=== PATIENT | female | born 1980 | race Caucasian/White ===

== ENCOUNTER 2023-12-03 20:12 | Outpatient (REF) | payer OTHER, SELFPAY ==
[2023-12-08 18:09] LABS: Age Gdln ACOG Testing Note (.); HPV Aptima Negative (Negative); IGP, Aptima HPV, rfx 16/18,45 Note (.)
== END 2023-12-03 20:13 | disposition home or self-care (01) ==
LOC: LAB 20:12
PROVIDERS: Visit Provider Physician Assistant
DX: Z01.419 Encounter for gynecological examination (general) (routine) without abnormal findings (principal)
CPT/HCPCS: 87624; G0145

== ENCOUNTER 2024-12-08 19:36 | Outpatient (REF) | payer OTHER, SELFPAY ==
[2024-12-13 11:08] LABS: Age Gdln ACOG Testing Note (.); HPV Aptima Negative (Negative); IGP, Aptima HPV, rfx 16/18,45 Note (.)
== END 2024-12-08 19:37 | disposition home or self-care (01) ==
LOC: LAB 19:36
PROVIDERS: Visit Provider Physician Assistant
DX: Z01.419 Encounter for gynecological examination (general) (routine) without abnormal findings (principal)
CPT/HCPCS: 87624; 88175

== ENCOUNTER 2024-12-16 13:46 | Outpatient (OUT) | payer OTHER, SELFPAY ==
--- NOTE | 2024-12-16 14:19 | MM_ITS ---
Patient Name: SHAWN OLIVO MR#: [id number] : 1980 Exam Date: 12/16/2024 Ordering Doctor: SHARMAINE VASQUEZ . RADIOLOGY REPORT PROCEDURE: MM TOMOSYNTHESIS SCREENING BI COMPARISON: MG MAMM SCREEN 3D MAYURI CAD, 10/24/2022. INDICATIONS: Screening mammogram Calculator Name NCI Breast Cancer Risk Assessment Tool 5 Year Breast Cancer Risk 0.80% Lifetime Breast Cancer Risk 10.80% Personal Breast Cancer No Personal Ovarian Cancer No Treatments None Family Cancers None LOCATION: [facility] BREAST COMPOSITION: The breasts are heterogeneously dense,which may obscure small masses. FINDINGS: DIAGNOSTIC CATEGORY 1--NEGATIVE. RIGHT BREAST: No significant suspicious finding. LEFT BREAST: No significant suspicious finding. RECOMMENDATIONS: ROUTINE MAMMOGRAM AND CLINICAL EVALUATION IN 12 MONTHS. PLEASE NOTE: A NORMAL MAMMOGRAM DOES NOT EXCLUDE THE POSSIBILITY OF BREAST CANCER. A CLINICALLY SUSPICIOUS PALPABLE LUMP SHOULD BE BIOPSIED. Dictated by: Sandoval Curtis DO on 12/16/2024 at 15:18 Approved by: Sandoval Curtis DO on 12/16/2024 at 15:20
== END 2024-12-16 13:47 | disposition home or self-care (01) ==
LOC: MAMMO 13:48
PROVIDERS: PCP Family Medicine; Visit Provider Physician Assistant
DX: Z12.31 Encounter for screening mammogram for malignant neoplasm of breast (principal)
CPT/HCPCS: 77063; 77067

== ENCOUNTER 2025-03-02 05:38 | Emergency (ER) | payer OTHER, SELFPAY ==
--- OUTSIDE RECORDS SUMMARY | 2024-10-07 10:45 | XMS_ITS ---
Author Organization [facility] in [place] Address [address] [place] [address] Care Team Providers Care Paper Feeder Name Role Phone Tristian Rothman Primary Care Provider Allergies No Known Allergies REASON FOR VISIT right ear feels plugged Medications Medication SIG (Take, Route, Frequency, Duration) Notes Start Date End Date Status Topiramate 100 MG 2.5 tabs Orally Once a day for 90 days 12/24/2022 Active tiZANidine HCl 4 MG 1 tablet as needed O rally Three times a day for 30 days PRN Active Rizatriptan Benzoate 10 MG 1 tablet Oral ly Once a day for 30 days PRN Active Social History Tobacco Use: Social History Observation Description Date Details (start date - stop date) Never Smoker NA - NA Tobacco Use/Smoking Question Answer Notes Patient is a nonsmoker AUDIT-C (Standard) Question Answer Notes Did you have a drink containing alcohol in the p ast year? No Points 0 Interpretation Negative Vital Signs Blood pressure systolic 122 mm Hg 10/07/19 25 Blood pressure diastolic 80 mm Hg 025 Height 66 in 10/07/2024 Weight 159 lbs 10/07/2024 BMI 25.66 kg/m2 10/07/2024 Procedures Procedure Date Ordered Date Performed Result Body Sit e EAR IRRIGATION - performed 10/07/2024 10/07/2024 N/A Encounters Encounter Location Date Provider Diagnosis [facility] [address] [place] [address] 10/07/2024 Tristian Rothman Cerumen impaction H61.20 and Bilateral impacted cerumen H61.23 Assessments Encounter Date Diagnosis (ICD Code) Assessment Notes Treatment Notes Treatment Clinical Notes Section Notes 10/07/2024 Cerumen impaction (ICD-10 - H61.20) ear war R 10/07/2024 Bilateral impacted cerumen (ICD-10 - H61.23) Plan Of Treatment Medication Medication Name Sig Start Date Stop Date Notes Topiramate 100 MG 2.5 tabs Orally Once a day for 90 days 0 12/24/2022 Treatment Notes Assessment Notes Cerumen impaction ear war R Pending Test Test Name Order Date EAR IRRIGATION - performed 10/07/2024 Progress Notes * Esme SAUCEDO SDOB:1980 ( 44 yo F)Acc No.[id number]:10/07/2024 Progress Note Patient: Esme RACHEL Provider: Alma Delia Rothman ([facility]), :1980 A ge:44 Y S ex:Female Date:10/07/2024 Address:[place] [address], [facility], [id number] Check In:02:36 PM ESTCheck O ut:03:27 PM EST Subjective: * Chief Complaints: * R ight ear feels plugged * HPI: G eneral: R ear plugged - dailed hearing test. D epression Screening: PHQ-2 (2015 Edition) L ittle interest or pleasure in doing things??Not at all F eeling down, depressed, or hopeless? N ot at all T otal Score 0 * Active Problem List J01.11 Acute recurrent fron narendra sinusitis Modified On:12/30/2022/U Status:confirmed G43.909 Migraine headache Modified On:01/01/2023U Status:confirmed M54.2 Neck pain Modified On:01/02/2023U Status:confirmed F32.9 Depression Modified On:12/30/2022U Status:confirmed G47.00 Insomnia Modified On:12/30/2022U Status:confirmed L30.9 Eczema Modified On:08/20/2023U Status:confirmed M25.569 Knee pain Modified On:08/20/2023/U Status:confirmed M25.50 Arthralgia Modified On:08/20/2023 Status:confirmed H61.20 Cerumen impaction Modified On:12/30/2022 Status:confirmed B00.1 Cold sore Modified On:12/30/2022 Status:confirmed K80.20 Cholelithiasis Modified On:12/30/2022U Status:confirmed Z00.00 Well adult Modified On:12/30/2022U Status:confirmed K58.9 Irritable bowel synd carmella Modified On:12/30/2022U Status:confirmed E66.3 Over weight Modified On:12/30/2022 Status:confirmed J30.2 Allergic rhinitis, s easonal Modified On:12/30/2022 Status:confirmed M25.529 Elbow pain Modified On:12/30/2022 Status:confirmed M54.50 Chronic midline low back pain without sciatica Modified On:01/01/2023U Status:confirmed M77.10 Lateral epicondyliti s of elbow Modified On:03/27/2023U Status:confirmed J31.0 Chronic rhinitis Modified On:02/12/2024U Status:confirmed * Medical History: * Surgical History: C holecystectomy 2011Tonsillectomy 1987 * Hospitalization/Major Diagno stic Procedure: N o Hospitalization History. * Family History: F ather: alive 70 yrs. M other: alive 69 yrs, diagnosed with Unspecified essential hypertension. S ister(s): alive. 1 sister(s) - healthy. . * Social History: T obacco Use: T obacco Use/Smoking P atient is a n onsmoker D rug/Alcohol: A NEEL-C (Standard) D id you have a drink containing alcohol in the past year? N o P oints 0 I nterpretation N egative * Medications: T akingRizatriptan Benzoate 10 MG Tablet 1 tablet Orally Once a day , Notes to Pharmacist: PRNtiZANidine HCl 4 MG Tablet 1 tablet as needed Orally Three times a day , Notes to Pharmacist: PRNTopiramate 100 MG Tablet 2.5 tabs Orally Once a day Medication List reviewed and reconciled with the patientTaking Faditriptan Benzoate 10 MG Tablet 1 tablet Orally Once a day , Notes to Pharmacist: PRNTaking tiZANidine HCl 4 MG Tablet 1 tablet as needed Orally Three times a day , Notes to Pharmacist: PRNTaking Topiramate 100 MG Tablet 2.5 tabs Orally Once a day Medication List reviewed and reconciled with the patient * Allergies: N .K.D.A.no[Allergies Verified] Objective: * Vitals: W t:159lbs, Ht: 66 in, BP:122/80mm Hg, BMI:25.66Index, Ht-cm: 167.64 cm, Wt-k.12 kg. * Examination: A bdomen Exam:: R cerumen impaction. Assessment: * Assessment: 1. C erumen impaction - H61.20 (Primary) 2 . B ilateral impacted cerumen - H61.23 Plan: * Treatment: Notes: ear war R?? * Procedure Codes: 6 9209 REMOVE IMPACTED CERUMEN, Modifiers: 50 * Preventive Medicine: Screenings/Counseling: B WI ACTION PLAN Below Normal BMI Follow-up D ietary management education, guidance, and counseling * * Sign off status: Completed Visit Status: C HK (Check Out) true * Provider: Alma Delia Rothman ([facility])MD Date: 0 10/07/2024 Generated for Lorenai ng/Fareubeng/eTransmitting on: 0 03/02/2025 05:46 AM EDT History and Physical Notes * HPI (History of Present Illness) Category Sub-Category Detail Notes Category Not es General R ear plugged - dailed hearing test Depression Screening PHQ-2 (2015 Edition) Little interest or pleasure in doing things?: Not at all Feeling down, depressed, or hopeless?: N ot at all Total Score: 0 Examination Category Sub-Category Detail Notes Category Not es Abdomen Exam: R cerumen impa ction
--- OUTSIDE RECORDS SUMMARY | 2024-10-11 04:06 | XMS_ITS ---
Author Organization The [facility] in [place] Address [address] [place] [address] Care Team Providers Care Nut Sorter Name Role Phone Tristian Rothman Primary Care Provider Medications Medication SIG (Take, Route, Fr equency, Duration) Notes Start Date End Date Status Topiramate 100 MG 2.5 tabs Orally Once a day for 90 days 12/24/2022 Active Encounters Encounter Location Date Provider Diagnosis [facility] [address] [place] [address] 10/11/2024 Tristian Rothman Cerumen impaction H61.20 Assessments Encounter Date Diagnosis (ICD Code) Assessment Notes Treatment Notes Treatment Clinical Notes Section Notes 10/11/2024 Cerumen impaction (ICD-10 - H61.20) Plan Of Treatment Medication Medication Name Sig Start Date Stop Date Notes Topiramate 100 MG 2.5 tabs Orally Once a day for 90 days 0 12/24/2022 Progress Notes * Esme OLIVO SDOB:1980 ( 44 yo F)Acc No.[id number]:10/11/2024 Patient: Esme RACHEL :1980 A ge:44 Y S ex:Female Address: [address], [place], [address] * Refills Refill Topiramate Tablet, 100 MG, Orally, 225 Tablet, 2.5 tabs, Once a day, 90 days, Refills=3 * true * Date: Generated for Austin silva/Maegan/Maryjoitting on: 0 03/02/2025 05:47 AM EDT
--- OUTSIDE RECORDS SUMMARY | 2024-12-18 11:50 | XMS_ITS ---
Author Organization [facility] in [place] Address [address] [place] [address] Care Team Providers Care Sales Management Trainee Name Role Phone Tristian Rothman Primary Care Provider [phone] REASON FOR VISIT Mammogram Results- Encounters Encounter Location Date Provider Diagnosis [facility] [address] [place] [address] 12/18/2024 Tristian Rothman Plan Of Treatment No Information Progress Notes * GEOVANI Esme SDOB:1980 ( 44 yo F)Acc No.[id number]:12/18/2024 Patient: Esme RACHEL :1980 A ge:44 Y S ex:Female Address:[address], [address] * true * Date: Generated for Lorenai ricardo/Maegan/eTransmitting on: 0 03/02/2025 05:46 AM EDT
[2025-03-02 05:43] VITALS: BP 130/101; PULSE 99; TEMP 36.6; O2SAT 100; BMI 24.5
--- OUTSIDE RECORDS SUMMARY | 2025-03-02 05:46 | XMS_ITS | CCD ---
Author Organization [facility] Care Team Providers Care Picking Belt Operator Name Role Phone Patti Thomas Unavailable Amie Morse Unavailable NAVYA Shelton, DR JOE Primary Care Unavailable PEDRO ., MARIJA Attending Unavailable PEDRO ., MARIJA Consulting Unavailable PEDRO .MARIJA Admitting Unavailable NAVYA ., DR JOE Attending Unavailable NAVYA ., DR JOE Consulting Unavailable NAVYA ., DR JOE Primary Care Unavailable NAVYA ., DR JOE Admitting Unavailable PORT EWEN, DR BILL Grover Consulting Unavailable NAVYA ., DR JOE Attending Unavailable HOY ., DR JOE Consulting Unavailable NAVYA ., DR JOE Primary Care Unavailable NAVYA ., DR JOE Admitting Unavailable Heath Rothman MD Primary Care Provider [phone] MARIJA VASQUEZ Attending Unavailable Allergies Allergy Classification Reported Allergen(s) Allergy Type Date of Onset Reaction(s) Facility (2 sources) Sulfamethoxazole / Trimethoprim Drug Allergy [facility] Surveypal Other Medications Current Medications Medication Drug Class(es) Dates Sig (Normalized) Sig (Original) doxycycline monohydrate 100 mg oral capsule (2 sources) Tetracycline- class Drug Start: 1 take 1 capsule by mouth every twelve hours Doxycycline Monohydrate 100 MG 1 capsule Orally every 12 hrs for 7 days Jul, Active FLUoxetine (2 sources) Serotonin Reuptake Inhibitor FLUoxetine HCl Activ e 1 ml medroxyPROGESTERone acetate 150 mg/ml injection (20 sources) Progestin Start: 5 End: 6 medroxyPROGESTERone (Depo-Provera) 150 MG/ML suspension prefilled syringe injection syringe Indications: Encounter for management and injection of depo-Provera Inject 1 mL (150 mg) into the shoulder, thigh, or buttocks every 3 (three) months 1 mL 3 12/08/2024 12/08/2025 Active Start: 09-18-2023 medroxyPROGEST ERone (Depo-Provera) injection 150 mg methylPREDNISolone 4 mg oral tablet (2 sources) Corticosteroid Start: 08-04-2021 methylPREDNISolone 4 MG as directed Orally Once a day for 6 days Jul, Active rizatriptan 10 mg oral tablet (8 sources) Serotonin-1b and Serotonin-1d Receptor Agonist Start: 03-19-2023 take 1 tablet by mouth in the morning rizatriptan (Maxalt) 10 MG tablet Take 10 mg by mouth in the morning. 03/19/2023 Active take 1 tablet by fanny th every twenty-four hours Maxalt 10 MG 1 tablet Orally Once a day Active Rizatriptan Marlo oate Active tiZANidine 4 mg oral tablet (7 sources) Central alpha-2 Adrenergic Agonist Start: 02-16-2023 tiZANidine (Zanaflex ) 4 MG tablet Take 8 mg by mouth at bedtime. 02/16/2023 Active tiZANidine HCl A ctive topiramate 100 mg oral tablet (7 sources) Start: 03-25-2023 take 1 tablet by mouth in the morning topiramate (Topamax) 100 MG tablet Take 100 mg by mouth in the morning. 03/25/2023 Active Topiramate Activ e Completed/Discontinued Medications Medication Drug Class(es) Dates Sig (Normalized) Sig (Original) Toradol 30 mg/ml (1 source) Start: 03-26-2022 Toradol 30 mg/ml Mar, 30 mg Problems Active Problems Problem Classification Problem Date Documented Da te Episodic/Chronic Contraceptive and procreative management (4 sources) Patient encounter status; Translations: [Encounter for surveillance of injectable contraceptive] 12-08-2024 Episodic Other screening for suspected conditions (not mental disorders or infectious disease) (10 sources) Encounter for screening for malignant neoplasm of cervix; Translations: [Encounter for screening mammogram for malignant neoplasm of breast] Onset: 10-24-2022 Episodic Other upper respiratory disease (1 source) Nasal congestion; Translations: [NASAL CONGESTION] Onset: 08-25-2022 Episodic Unclassified (3 sources) CONTACT W/AND (SUSP) EXPOS COVID-19; Translations: [CONTACT W/AND (SUSP) EXPOS COVID-19] Onset: 08-25-2022 Unclassified (1 source) COUGH, UNSPECIFIED; Translations: [COUGH, UNSPECIFIED] Onset: 08-25-2022 Past or Other Problems Problem Classification Problem Date Documented Da te Episodic/Chronic Headache; including migraine (1 source) Headache; including migraine Onset: 03-26-2022 Resolved: 03-26-2022 Immunizations and screening for infectious disease (1 source) Contact with and (suspected) exposure to other viral communicable diseases Onset: 08-04-2021 Resolved: 08-04-2021 Episodic Other upper respiratory infections (1 source) Acute maxillary sinusitis, unspecified Onset: 08-04-2021 Resolved: 08-04-2021 Episodic Unclassified (1 source) CONTACT W/AND (SUSP) EXPOS COVID-19; Translations: [CONTACT W/AND (SUSP) EXPOS COVID-19] Onset: 08-21-2022 Results Test Name Value Interpretation Reference Range Facility MM TOMOSYNTHESIS SCREENING B Ion 12-16-2024 [place] [address] Mammography Report Signed Patient: SHAWN OLIVO MR#: [id number] : 1980 Acct:[id number] Age/Sex: 44 / F ADM Date: 12/16/24 Loc: MAMMO Attending Dr: Marija Vasquez Ordering Physician: Marija Vasquez Results: Date of Service: 12/16/24 Follow Up: Procedure(s): MM tomosynthesis screening BI Accession Number(s): [id number] cc: Marija Vasquez; Heath Rothman M.D. Patient Name: SHAWN OLIVO MR#: [id number] : 1980 Exam Date: 12/16/2024 Ordering Doctor: SHARMAINE VASQUEZ . RADIOLOGY REPORT PROCEDURE: MM TOMOSYNTHESIS SCREENING BI COMPARISON: MG MAMM SCREEN 3D MAYURI CAD, 10/24/2022. INDICATIONS: Screening mammogram Calculator Name NCI Breast Cancer Risk Assessment Tool 5 Year Breast Cancer Risk 0.80% Lifetime Breast Cancer Risk 10.80% Personal Breast Cancer No Personal Ovarian Cancer No Treatments None Family Cancers None LOCATION: [facility] BREAST COMPOSITION: The breasts are heterogeneously dense,which may obscure small masses. FINDINGS: DIAGNOSTIC CATEGORY 1--NEGATIVE. RIGHT BREAST: No significant suspicious finding. LEFT BREAST: No significant suspicious finding. RECOMMENDATIONS: ROUTINE MAMMOGRAM AND CLINICAL EVALUATION IN 12 MONTHS. PLEASE NOTE: A NORMAL MAMMOGRAM DOES NOT EXCLUDE THE POSSIBILITY OF BREAST CANCER. A CLINICALLY SUSPICIOUS PALPABLE LUMP SHOULD BE BIOPSIED. Dictated by: Sandoval Curtis DO on 12/16/2024 at 15:18 Approved by: Sandoval Curtis DO on 12/16/2024 at 15:20 Dictated By: Sandoval Curtis M.D. Signed By: 12/16/24 1521 DD/ 1520 TD/TT: Test Cell Technician: [facility] Radiology, Radiologist, MD - 12/16/2024 [place] [address] Mammography Report Signed Patient: SHAWN OLIVO MR#: [id number] : 1980 Acct:[id number] Age/Sex: 44 / F ADM Date: 12/16/24 Loc: MAMMO Attending Dr: Marija Vasquez Ordering Physician: Marija Vasquez Results: Date of Service: 12/16/24 Follow Up: Procedure(s): MM tomosynthesis screening BI Accession Number(s): [id number] cc: Marija Vasquez; Heath Rothman M.D. Patient Name: SHAWN OLIVO MR#: [id number] : 1980 Exam Date: 12/16/2024 Ordering Doctor: SHARMAINE VASQUEZ . RADIOLOGY REPORT PROCEDURE: MM TOMOSYNTHESIS SCREENING BI COMPARISON: MG MAMM SCREEN 3D MAYURI CAD, 10/24/2022. INDICATIONS: Screening mammogram Calculator Name NCI Breast Cancer Risk Assessment Tool 5 Year Breast Cancer Risk 0.80% Lifetime Breast Cancer Risk 10.80% Personal Breast Cancer No Personal Ovarian Cancer No Treatments None Family Cancers None LOCATION: [facility] BREAST COMPOSITION: The breasts are heterogeneously dense,which may obscure small masses. FINDINGS: DIAGNOSTIC CATEGORY 1--NEGATIVE. RIGHT BREAST: No significant suspicious finding. LEFT BREAST: No significant suspicious finding. RECOMMENDATIONS: ROUTINE MAMMOGRAM AND CLINICAL EVALUATION IN 12 MONTHS. PLEASE NOTE: A NORMAL MAMMOGRAM DOES NOT EXCLUDE THE POSSIBILITY OF BREAST CANCER. A CLINICALLY SUSPICIOUS PALPABLE LUMP SHOULD BE BIOPSIED. Dictated by: Sandoval Curtis DO on 12/16/2024 at 15:18 Approved by: Sandoval Curtis DO on 12/16/2024 at 15:20 Dictated By: Sandoval Curtis M.D. Signed By: 12/16/24 1521 DD/ 1520 TD/TT: Test Cell Technician: [facility] Rad[facility] Study observation (narrative) [employer] MM TOMOSYNTHESIS SCREENING B IOrdered By: Radiologist Radiology on 12-16-2024 [employer] Work Phone: IGP,APTIMA HPV,AGE GDLNon AGE GDLN ACOG TESTING Note . [facility] Comment on above: TESTS RESULT FLAG U NITS REF RANGE LAB Clinician Provided Cytology Information Source.............Cervix;Endocervix No. of containers..01 ThinPrep Vial Age Algo ACOG Eloisa... 30-65 01 FLAG LEGEND: L-Low Normal,H-High Normal,LL-Alert Low,HH-Alert High <-Panic Low,>-Panic High,A-Abnormal,AA-Critical Abnormal Performed at: 01 =G [address] [address] Evita Roach MD, HPV APTIMA Negative Negative [facility] Comment on above: This nucleic acid am plification test detects fourteen high- risk HPV types (16,18,31,33,35,39,45,51,52,56,58,59,66,68) without differentiation. Performed at: =G - [facility] [address], [place] [id number] Transportation Driver: Evita Roach MD, Phone: [phone] Performed at: WB - [facility] [address] [facility], [place] [id number] Transportation Driver: Evita Roach MD, Phone: [phone] IGP, APTIMA HPV, RFX 16/18,45 Note . [facility] Comment on above: TESTS RESULT FLAG UN ITS REF RANGE LAB DIAGNOSIS: 02 NEGATIVE FOR INTRAEPITHELIAL LESION OR MALIGNANCY. CELLULAR CHANGES ASSOCIATED WITH INFLAMMATION ARE PRESENT. Specimen adequacy: 02 Satisfactory for evaluation. Endocervical and/or squamous metaplastic cells (endocervical component) are present. Performed by: Jakub Pham Space Engineer (ASCP) . 02 Note: Note 02 The Pap smear is a screening test designed to aid in the detection of premalignant and malignant conditions of the uterine cervix. It is not a diagnostic procedure and should not be used as the sole means of detecting cervical cancer. Both false-positive and false-negative reports do occur. Test Methodology: Note 02 This liquid based ThinPrep(R) pap test was screened with the use of an image guided system. HPV Genotype Reflex Note 02 Criteria not met, HPV Genotype not performed. FLAG LEGEND: L-Low Normal,H-High Normal,LL-Alert Low,HH-Alert High <-Panic Low,>-Panic High,A-Abnormal,AA-Critical Abnormal Performed at: [address] [address] Evita Roach MD, BRUSH-SPATULA CERVIX ENDOCERVIX [facility] PAP ACOG PANEL 2: 30 to 65on 11-13-2022 . . Normal [facility] Comment on above: Result Comment: Perf ormed at: WB Performed By: #### [id number] #### [facility] [address] [address] [address] Elly Lincoln Age Gdln ACOG Testing -65 Normal [facility] Comment on above: Performed By: #### [id number] #### [facility] [address] [address] [address] Elly Lincoln DIAGNOSIS: Comment Normal [facility] Comment on above: Result Comment: NEGA TIVE FOR INTRAEPITHELIAL LESION OR MALIGNANCY. Performed at: WB Performed By: #### [id number] #### [facility] [address] [address] [address] Elly Lincoln HPV Aptima Negative Normal Negative [facility] Comment on above: Result Comment: This nucleic acid amplification test detects fourteen high-risk HPV types (16,18,31,33,35,39,45,51,52,56,58,59,66,68) without differentiation. Performed at: =G Performed By: #### [id number] #### [facility] [address] [address] [address] Elly Lincoln HPV Genotype Reflex Comment Normal [facility] Comment on above: Result Comment: Crit eria not met, HPV Genotype not performed. Performed at: WB Performed By: #### [id number] #### [facility] [address] [address] [address] Elly Lincoln Methodology: Comment Normal [facility] Comment on above: Result Comment: This liquid based ThinPrep(R) pap test was screened with the use of an image guided system. Performed at: WB Performed By: #### [id number] #### [facility] [address] [place] [address] Dr. Elly Lincoln Note: Comment Normal [facility] Comment on above: Result Comment: The Pap smear is a screening test designed to aid in the detection of premalignant and malignant conditions of the uterine cervix. It is not a diagnostic procedure and should not be used as the sole means of detecting cervical cancer. Both false-positive and false-negative reports do occur. . Performed at: WB Performed By: #### [id number] #### [facility] [address] [place] [address] Dr. Elly Lincoln Performed by: Comment Normal [facility] Comment on above: Result Comment: Clementina Gilliam, Space Engineer (ASCP) Performed at: WB Performed By: #### [id number] #### [facility] [address] [place] [address] Dr. Elly Lincoln Specimen adequacy: Comment Normal [facility] Comment on above: Result Comment: Sati sfactory for evaluation. Endocervical and/or squamous metaplastic cells (endocervical component) are present. Performed at: WB Performed By: #### [id number] #### [facility] [address] [place] [address] Dr. Elly Lincoln MG MAMM SCREEN 3D MAYURI CADon 10-24-2022 MG MAMM SCREEN 3D MAYURI CAD Patient: SHAWN OLIVO Exam Date: 10/24/2022 : 1980 Gender:F Ordering : DR HEATH ROTHMAN . Admission #: [id number] Family : Order #: [id number] CLICK HERE TO VIEW EXAM RADIOLOGY REPORT PROCEDURE: MAMMOGRAM SCREENING 3D BILATERAL CAD COMPARISON: None. INDICATIONS: Screening mammography Calculator Name NCI Breast Cancer Risk Assessment Tool 5 Year Breast Cancer Risk 0.70% Lifetime Breast Cancer Risk 11.00% Personal Breast Cancer No Personal Ovarian Cancer No Treatments None Family Cancers None LOCATION: [facility] BREAST COMPOSITION: Extremely dense, which lowers the sensitivity of mammography. FINDINGS: DIAGNOSTIC CATEGORY 1--NEGATIVE. RIGHT BREAST: No significant suspicious finding. LEFT BREAST: No significant suspicious finding. RECOMMENDATIONS: ROUTINE MAMMOGRAM AND CLINICAL EVALUATION IN 12 MONTHS. PLEASE NOTE: A NORMAL MAMMOGRAM DOES NOT EXCLUDE THE POSSIBILITY OF BREAST CANCER. A CLINICALLY SUSPICIOUS PALPABLE LUMP SHOULD BE BIOPSIED. Dictated by: Bill Romo MD on 10/27/2022 at 07:44 Approved by: Bill Romo MD on 10/27/2022 at 07:46 Normal [facility] Covid-19 PCR (CVDTB)on SARS-CoV-2 (COVID-19) RNA SHELLI+probe Ql (Unsp spec) Not detected Normal NOT DETECTED [facility] Comment on above: Result Comment: This test is not yet approved or cleared by the [place] FDA. When there are no FDA-approved or cleared tests available, and other criteria are met, FDA can make tests available under an emergency access mechanism called an Emergency Use Authorization (EUA). The EUA for this test is supported by the [place] of Health and Human Service's (HHS's) declaration that circumstances exist to justify the emergency use of in vitro diagnostics for the detection and/or diagnosis of the virus that causes COVID-19. This EUA will remain in effect (meaning this test can be used) for the duration of the COVID-19 declaration justifying emergency of IVDs, unless it is terminated or revoked by FDA (after which the test may no longer be used). When diagnostic testing is negative, the possibility of a false negative should be considered in the context of a patient's recent exposures and the presence of clinical signs and symptoms consistent with SARS-CoV-2. Performed By: #### C VDTBH #### [facility] [address] [place] [address] Dr. Elly Lincoln INFLUENZA A AND B AGon 08-21 INFLUANEGH SEE BELOW Normal [facility] Comment on above: Result Comment: Nega tive for Flu A protein angiten. Infection due to Flu A cannot be ruled out. Flu A angiten in the sample may be below the detection limit of the test. Performed By: #### I NFLUAB #### [facility] [address] [address] [address] Elly Lincoln [facility] SEE BELOW Normal [facility] Comment on above: Result Comment: Nega tive for Flu B protein antigen. Infection due to Flu B cannot be ruled out. Flu B antigen in the sample may be below the detection limit of the test. Performed By: #### I NFLUAB #### [facility] [address] [address] [address] Elly Lincoln INFLUENZA A AG Negative Normal NEGATIVE SEE COMMENT [facility] Comment on above: Performed By: #### I NFLUAB #### [facility] [address] [place] [address] Dr. Elly Lincoln INFLUENZA B AG Negative Normal NEGATIVE SEE COMMENT [facility] Comment on above: Performed By: #### I NFLUAB #### [facility] [address] [place] [address] Dr. Elly Lincoln INTERNAL CONTROLS Within Normal Limits Normal Wi thin Normal Limits [facility] Comment on above: Performed By: #### I NFLUAB #### [facility] [address] [address] [address] Elly Lincoln COVID Quick Testingon 2020 Result Negative [employer] Other Vital Signs Date Time Vital Sign Value Performing Clinician Facility 12-08-2024 14:11-0400 Body mass index (BMI) [Ratio] 25.36 kg/m2 Marija SCHMID Work Phone: [facility] 12-08-2024 14:11-040 Body weight 71.27 kg Marija SCHMID Work Phone: [facility] 12-08-2024 14:11-0400 Diastolic blood pressure 74 mm[Hg] Marija SCHMID Work Phone: [facility] 12-08-2024 14:11-0400 Systolic blood pressure 122 mm[Hg] Marija SCHMID Work Phone: [facility] 03-26-2022 10:15-0400 Body height 167.64 cm Amie Morse Other [employer] Other 03-26-2022 10:15-0400 Body mass index (BMI) [Ratio] 26.63 kg/m2 Amie Morse Other [employer] Other 03-26-2022 10:15-0400 Body temperature 98.1 [degF] Amie Morse Other [employer] Other 03-26-2022 10:15-0400 Body weight 74.84 kg Amie Morse Other [employer] Other 03-26-2022 10:15-0400 Diastolic blood pressure 101 mm[Hg] Amie Morse Other [employer] Other 03-26-2022 10:15-0400 Respiratory rate 16 /min Amie Morse Other [employer] Other 03-26-2022 10:15-0400 SaO2% (BldA) [Mass fraction] 99 % Amie Morse Other [employer] Other 03-26-2022 10:15-0400 Systolic blood pressure 137 mm[Hg] Amie Morse Other [employer] Other 08-04-2021 10:15-0500 Body temperature 96.1 [degF] Patti Thomas Other [employer] Other 08-04-2021 10:15-0500 SaO2% (BldA) [Mass fraction] 97 % Patti Thomas Other [employer] Other Encounters Encounter Date Encounter Type Care Provider Facility Start: 02-10-2025 End: 02-10-2025 ambulatory MARIJA VASQUEZ Not Available Start: 12-16-2024 End: 12-16-2024 [facility] Result Encounter Marija Vasquez SHARMAINE Work Phone: [facility] Unsolicited Start: 12-16-2024 End: 12-16-2024 [facility] Result Encounter Marija Vasquez SHARMAINE Work Phone: [facility] Unsolicited Start: 12-08-2024 End: 12-08-2024 Bamboo flowsheet Marija Vasquez PA Work Phone: [facility] Start: 12-08-2024 End: 12-13-2024 Bamboo flowsheet Marija Vasquez SHARMAINE Work Phone: [facility] Start: 12-08-2024 End: 12-13-2024 [facility] Result Encounter Marija Vasquez SHARMAINE Work Phone: [facility] Unsolicited Start: 12-08-2024 End: 12-08-2024 Patient encounter procedure Marija Vasquez PA Work Phone: [facility] Work Phone: Start: 12-08-2024 End: 12-08-2024 Periodic preventive med est patient 40-64yrs Marija Vasquez SHARMAINE Work Phone: [facility] Comment on above: Well woman exam with routine gynecological exam; Breast cancer screening by mammogram; Encounter for management and injection of depo-Provera; Encounter for surveillance of injectable contraceptive Start: 12-08-2024 End: 12-08-2024 ambulatory MARIJA VASQUEZ Not Available Start: 11-18-2024 End: 11-18-2024 ambulatory MARIJA PEDRO Not Available Start: 08-26-2024 End: 08-26-2024 ambulatory MARIJA VASQUEZ Not Available Start: 06-03-2024 End: 06-03-2024 ambulatory MARIJA HOLLIDAYEY Not Available Start: 03-11-2024 End: 03-11-2024 ambulatory MARIJA VASQUEZ Not Available Start: 11-06-2022 End: 11-06-[address] HEATH ROTHMAN . Facility: Start: 10-24-2022 End: 10-25-[address] HEATH ROTHMAN . Facility:[facility] Start: 08-21-2022 End: 08-21-[address] HEATH ROTHMAN . Facility:[facility] Start: 03-26-2022 End: 03-26-2022 ambulatory Amie Morse Other [employer] Other Start: 03-26-2022 Office outpatient vi sit 15 minutes Amie Mini [facility] Start: 08-04-2021 End: 08-04-2021 ambulatory Patti Martinault Other [employer] Other Start: 08-04-2021 Office outpatient vi sit 15 minutes Patti Thomas [facility] Procedures Date Procedure Procedure Detail Performing Clinician Start: 12-16-2024 MM TOMOSYNTHESIS SCR EENING BI Marija SCHMID Work Phone: Start: 12-16-2024 Mammography Marija SCHMID Work Phone: Start: 12-08-2024 IGP,APTIMA HPV,AGE GDLN Marija SCHMID Work Phone: Start: 12-03-2023 Microscopic observat ion [Identifier] in Cervix by Cyto stain Marija SCHMID Work Phone: Plan of Treatment Date Care Activity Detail Author Start: 12-02-2026 Screening for malignant neoplasm of cervix [facility] Start: 12-14-2025 End: 12-14-2025 Patient encounter procedure 12/14/2025 2:00 PM EDT Office Visit [facility] [address] [place] [address] Marija Vasquez PA [address] [place] [address] [facility] Start: 05-15-2025 Influenza vaccination Influenz a Vaccine (Season Ended) [facility] Start: 02-10-2025 End: 02-10-2025 Clinical Support 02/10/2025 11:00 AM EDT Clinical Support [facility] [address] [place] [id number] [facility] Start: 12-08-2024 End: 02-07-2026 MG Breast - bilateral Screening Bilateral screening mammogram Imaging Routine Breast cancer screening by mammogram Expected: 12/08/2024 (Approximate), Expires: 02/07/2026 [facility] Work Phone: Comment on above: Expected: 12/08/2024 (Approximate), Expires: 02/07/2026 Start: 12-08-2024 End: 12-08-2024 Patient encounter procedure 12/08/2024 2:00 PM EDT Office Visit [facility] [address] [place] [address] Marija Vasquez PA [address] [facility] [address] [place], [place] [id number] Arrived [facility] Comment on above: Arrived Start: 05-15-2024 Influenza vaccination Influenza Vacc ine (#1) [facility] Start: 2021 Screening for malignant neoplasm of breast Mammogram [facility] Start: 2011 Screening for malignant neoplasm of cervix HPV/Cotest [facility] THIN PREP TIS PAP AN D HR HPV DNA THIN PREP TIS PAP AND HR HPV DNA Pathology and Cytology Routine Well woman exam with routine gynecological exam Ordered: 12/08/2024 [facility] Comment on above: Ordered: 12/08/2024 Payers Date Payer Category Payer Private Health Insurance [facility] [id number] 1980 Unknown [id number] [id number]. 2.593 1980 Unknown [id number] [id number]. 2.593 1980 Unknown [id number] 2.16.840.1.103403.3.579. 2.593 1980 Unknown [id number] 2.16.840.1.995779.3.579. 2.9 1980 Unknown [id number] 2.16.840.1.177960.3.579. 2.9 1980 Unknown [id number] 2.16.840.1.781424.3.579. 2.9 1980 Unknown [id number] 2.16.840.1.577604.3.579. 2.9 1980 Unknown [id number] 2.16.840.1.977094.3.579. 2.9 1980 Unknown [id number] 2.16.840.1.606989.3.579. 2.1259 1958 Unknown [id number] [id number] 1959 Unknown [id number] Social History Date Type Detail Facility Start: 12-01-2023 Sex Assigned At [facility] [facility] Other Start: 12-01-2023 Tobacco smoking status [facility] Never smoked tobacco [facility] Start: 06-03-2024 Alcoholic beverage intake Lifetime non-drinker (finding) [facility] Start: 12-01-2023 History of Social function [facility] Healthcare Start: 1980 Sex assigned at Female [facility] Start: 03-20-2023 Gender identity Identifies as female gender (finding) [facility] Start: 03-20-2023 Sexual orientation Heterosexual (finding) [facility] History of Present illness Narrative 12-08-2024 SHARMAINE Hale - 12/08/2024 2:00 PM EDT Note Date & Type Note Facility 12-08-2024 History of Presen t illness Narrative Reason for Appointment: Patient ID: Shawn Olivo is a 44 y.o. female who presents for Well Women Visit Patient presents today for Annual Exam. MEDICATIONS Current Outpatient Medications Medication Instructions medroxyPROGESTERone (DEPO-PROVERA) 150 mg, Intramuscular, Every 3 months rizatriptan (MAXALT) 10 mg, Oral, Daily tiZANidine (ZANAFLEX) 8 mg, Oral, Nightly topiramate (TOPAMAX) 100 mg, Oral, Daily ALLERGIES No Known Allergies PROBLEMS Active Ambulatory Problems Diagnosis Date Noted No Active Ambulatory Problems Resolved Ambulatory Problems Diagnosis Date Noted No Resolved Ambulatory Problems No Additional Past Medical History HISTORY PAST MEDICAL HISTORY SOCIAL HISTORY No past medical history on file. Social History Tobacco Use Smoking status: Never Smokeless tobacco: Not on file Substance Use Topics Alcohol use: Never Drug use: Never FAMILY HISTORY No family history on file. SURGICAL HISTORY No past surgical history on file. REVIEW OF SYSTEMS Review of Systems: Review of Systems All other systems reviewed and are negative. OBJECTIVE Objective: Physical Exam Constitutional: Appearance: Normal appearance. Genitourinary: Right Adnexa: not tender and no mass present. Left Adnexa: not tender and no mass present. No cervical discharge. Breasts: Breasts are soft. Right: Normal. Left: Normal. HENT: Head: Normocephalic. Nose: Nose normal. Mouth/Throat: Mouth: Mucous membranes are moist. Cardiovascular: Rate and Rhythm: Normal rate. Pulmonary: Effort: Pulmonary effort is normal. Abdominal: General: Bowel sounds are normal. Palpations: Abdomen is soft. Musculoskeletal: General: Normal range of motion. Cervical back: Normal range of motion. Neurological: General: No focal deficit present. Mental Status: She is alert. Skin: General: Skin is warm and dry. Psychiatric: Mood and Affect: Mood normal. Vitals and nursing note reviewed. Exam conducted with a robotic toy inventor present. Vitals: Estimated body mass index is 25.36 kg/m as calculated from the following: Height as of 12/03/23: 5' 6 . Weight as of this encounter: 157 lb 1.9 oz. BP: 122/74 No LMP recorded. ASSESSMENT & PLAN ICD-10-CM 1. Well woman exam with routine gynecological exam Z01.419 THIN PREP TIS PAP AND HR HPV DNA 2. Breast cancer screening by mammogram Z12.31 Bilateral screening mammogram Bilateral screening mammogram 3. Encounter for management and injection of depo-Provera Z30.42 medroxyPROGESTERone (Depo-Provera) 150 MG/ML suspension prefilled syringe injection syringe 4. Encounter for surveillance of injectable contraceptive Z30.42 medroxyPROGESTERone (Depo-Provera) injection 150 mg Annual Exam: Patient presents today for an annual exam. Patient states she is doing well and has no complaints. Pap was obtained without difficulty. Orders Placed This Encounter Procedures Bilateral screening mammogram Refill on her medroxyprogesterone injection was sent to pharmacy. Follow Up: Patient is to return in one year for annual unless needed otherwise. Documented by Belén Lozano MA on behalf of: SHARMAINE Hale documented in this encounter [facility] Evaluation note 03-26-2022 Note Date & Type Note Facility 03-26-2022 Evaluation note Encounter Date Diagnosis Assessment Notes Mar, Nonintractable headache, unspecified chronicity pattern, unspecified headache type (ICD-10 - R51.9) Headache home care material was printed Drink plenty fluids, get plenty of rest. Continue home medications as prescribed. Take 25 mg of Benadryl once you get home, go to bed and rest. Follow-up with your family physician if no improvement in 2 to 3 days. [employer] Other Evaluation note 08-04-2021 Note Date & Type Note Facility 08-04-2021 Evaluation note Encounter Date Diagnosis Assessment Notes Jul, Contact with and (suspected) exposure to other viral communicable diseases (ICD-10 - Z20.828) Today test was performed in office. Results are currently negative. That does not mean that you will not develop COVID or do not currently have a low viral count of COVID. The rapid test works best if symptoms have been over 72 hours and the results can vary if you are asymptomatic There is a higher chance of false negative results to occur if testing is performed too soon. It is recommended that even if results are negative and you have been exposed to someone that has COVID that you follow current CDC recommendations . These can be found at CDC.GOV. Follow up with primary care provider if symptoms persist or do not improve Jul, Acute non-recurrent maxillary sinusitis (ICD-10 - J01.00) Sinus infections can be triggeredby a secondary infection; usually a viral URI or even seasonal allergies. Take medications as directed. Use saline nasal spray prior to presciption nasal spray. Complete all doses of medication even if you start to feel better. Symptoms should improve during treatment period. Do not use any over the counter medications is received prescription cough syrup is given. Follow up with primary care provider if no improvement of symptoms occur by end of treatment. Jul, Other Additional time spent conducting pre-visit phone call, screening for symptoms, instructions on social distancing, application and removal of PPE, and cleaning of examination room, equipment and supplies was preformed. Patient education given for testing methodology and results. Patient care instructions given in writting by [facility] Care At Home document. [facility] Other Evaluation note Note Date & Type Note Facility Evaluation note Diagnosis Well woman exam with routine gynecological exam Routine gynecological examination Breast cancer screening by mammogram Encounter for management and injection of depo-Provera Encounter for surveillance of injectable contraceptive documented in this encounter [facility] History general Narrative - Reported Note Date & Type Note Facility History general Narrative - Reported Type Medical History migraine headache [facility] Other Summary Purpose Family History No Family History Records FoundNo Family History Records Found Advance Directives No Advanced Directives Records FoundNo Advanced Directives Records Found Additional Source Comments REASON FOR VISIT (unrecogniz ed section and content) Reason Comments Well Women Visit INFORMATION SOURCE (unrecogn ized section and content) DATE CREATED AUTHOR 11/15/2022 [facility] [place] [facility] DATE CREATED AUTHOR AUTHOR'S ORGANIZ ATION 02/12/2025 [facility] Specialists EPIC Care Teams (unrecognized sec tion and content) Picking Belt Operator Relationship Specialty Start Date End Date Heath Rothman MD [address] [place] [phone] PCP - General Family Medicine 03/27/23 Picking Belt Operator Relationship Specialty Start Date End Date Heath Rothman MD [address] [place] [phone] PCP - General Family Medicine 03/27/23 Picking Belt Operator Relationship Specialty Start Date End Date Heath Rothman MD [address] [place] [phone] PCP - General Family Medicine 03/27/23 FOR RECORDS PERTAINING TO PATIENTS WHO ARE OR HAVE BEEN ENROLLED IN A CHEMICAL DEPENDENCY/SUBSTANCEABUSE PROGRAM, SOME INFORMATION MAY BE OMITTED. This clinical summary was aggregated from multiple sources. Caution should be exercised in using it in the provision of clinical care. This summary normalizes information from multiple sources, and as a consequence, information in this document may materially change the coding, format and clinical context of patient data. In addition, data may be omitted in some cases. CLINICAL DECISIONS SHOULD BE BASED ON THE PRIMARY CLINICAL RECORDS. [facility]. provides no warranty or guarantee of the accuracy or completeness of information in this document.
--- OUTSIDE RECORDS SUMMARY | 2025-03-02 05:47 | XMS_ITS | Patient Health Record ---
Author Organization [facility] in [place] Address [address] [place] [address] Care Team Providers Care Ground School Instructor Name Role Phone Tristian Rothman Primary Care Provider [phone] Allergies No Known Allergies Results Component Value Reference Range Notes MM tomosynthesis screening B I Reviewed date:12/18/2024 03:51:24 PM Interpretation: Performing Lab: Notes/Report: Source Facility: [place] [address] Mammography Report Signed Patient: ESME OLIVO MR#: [id number] : 1980 Acct:[id number] Age/Sex: 44 / F ADM Date: 12/16/24 Loc: MAMMO Attending Dr: Marija Vasquez Ordering Physician: Marija Vasquez Results: Date of Service: 12/16/24 Follow Up: Procedure(s): MM tomosynthesis screening BI Accession Number(s): [id number] cc: Marija Vasquez; Jayden Rothman M.D. Patient Name: ESME OLIVO MR#: [id number] : 1980 Exam Date: 12/16/2024 Ordering Doctor: SHARMAINE VASQUEZ . RADIOLOGY REPORT PROCEDURE: MM TOMOSYNTHESIS SCREENING BI COMPARISON: MG MAMM SCREEN 3D [facility] CAD, 10/24/2022. INDICATIONS: Screening mammogram Calculator Name NCI Breast Cancer Risk Assessment Tool 5 Year Breast Cancer Risk 0.80% Lifetime Breast Cancer Risk 10.80% Personal Breast Cancer No Personal Ovarian Cancer No Treatments None Family Cancers None LOCATION: [facility] BREAST COMPOSITION: The breasts are heterogeneously dense,which [...] Signed By: 12/16/24 1521 DD/ 1520 TD/TT: Compensator Worker: [place] [address] Mammography Report Signed Patient: ESME OLIVO MR#: [id number] : 1980 Acct:[id number] Age/Sex: 44 / F ADM Date: 12/16/24 Loc: MAMMO Attending Dr: Marija Vasquez Ordering Physician: Marija Vasquez Results: Date of Service: 01/06 Follow Up: Procedure(s): MM nikky osynthesis screening BI Accession Number(s): [id number] cc: Marija Vasquez; Jayden Rothman M.D. Patient Name: ESME OLIVO MR#: [id number] : 1980 Exam Date: 12/16/2024 Ordering Doctor: SHARMAINE VASQUEZ . RADIOLOGY REPORT PROCEDURE: MM TOMOSY NTHESIS SCREENING BI COMPARISON: MG MAMM SCREEN 3D [facility] CAD, 10/24/2022. INDICATIONS: Screeni ng mammogram Calculator Name NCI Breast Cancer Risk Assessment Tool 5 Year Breast Cancer Risk 0.80% Lifetime Breast Canc er Risk 10.80% Personal Breast Cancer No Personal Ovarian Cancer No Treatments None Family Cancers None LOCATION: [facility] BREAST COMPOSITION: The breasts are heterogeneously dense,which may obscure small masses. FINDINGS: DIAGNOSTIC CATEGORY 1--NEGATIVE. RIGHT BREAST: No sig nificant suspicious finding. LEFT BREAST: No sign ificant suspicious finding. RECOMMENDATIONS: ROUTINE MAMMOGRAM AN D CLINICAL EVALUATION IN 12 MONTHS. PLEASE NOTE: A EUSEBIO L MAMMOGRAM DOES NOT EXCLUDE THE POSSIBILITY OF BREAST CANCER. A CLINICALLY SUSPICIOUS PALPABLE LUMP SHOULD BE BIOPSIED. Dictated by: Sandoval Curtis DO on 12/16/2024 at 15:18 Approved by: Sandoval Curtis DO on 12/16/2024 at 15:20 Dictated By: Sandoval Doherty i, M.D. Signed By: 12/16/24 1521 DD/ 1520 TD/TT: Compensator Worker: Reason For Referral No Information Medications Medication SIG (Take, Route, Frequency, Duration) [...] Question Answer Notes Patient is a nonsmoker Alcohol Screen (Audit-C) Question Answer Notes Did you have a drink contain ing alcohol in the past year? Yes How often did you have 6 or more drinks on one occasion in the past year? Two to three times per week (3 points) How many drinks did you have on a typical day when you were drinking in the past year? 1 or 2 drinks (0 point) How often did you have a dri nk containing alcohol in the past year? Daily or almost daily (4 points) Points 7 Interpretation Positive AUDIT-C (Standard) Question Answer Notes Did you have a drink containing alcohol in the p ast year? No Points 0 Interpretation Negative Problems Problem Type SNOMED Code ICD Code Onset Dates Problem Status W/U Status Risk Notes Problem Chronic rhinitis (29225280) Chronic rhinitis (J31.0) Active confirmed Problem Acute frontal sinusitis (48714818) Acute recurrent frontal sinusitis (J01.11) Active confirmed Problem Migraine variant with headache (disorder) (900102632) Migraine headache (G43.909) Active confirmed Problem Neck pain (18249525) Neck pain (M54.2) Active confirmed Problem Depression (749080211) Depression (F32.9) Active confirmed Problem Insomnia (904644654) Insomnia (G47.00) Active confirmed Problem Eczema (78034531) Eczema (L30.9) Active confirm ed Problem Knee pain (7885977238) Knee pain (M25.569) Active confirmed Problem Arthralgia (85615513) Arthralgia (M25.50) Active confirmed Problem Impacted cerumen (78927047) Cerumen impaction (H61.20) Active confirmed Problem Cold sore (5463079) Cold sore (B00.1) Active confirmed Problem Cholelithiasis (065181141) Cholelithiasis (K80.20) Active confirmed Problem Well adult (070832143) Well adult (Z00.00) Active confirmed Problem Irritable bowel syndrome (70770973) Irritable bowel syndrome (K58.9) Active confirmed Problem Overweight (881796659) Over weight (E66.3) Active confirmed Problem Seasonal allergic rhinitis (009981325) Allergic rhinitis, seasonal (J30.2) Active confirmed Problem Elbow pain (46253452) Elbow pain (M25.529) Active confirmed Problem Lateral epicondylitis (816863336) Lateral epicondylitis of elbow (M77.10) Active confirmed Problem Chronic low back pain (finding) (490280195) Chronic midline low back pain without sciatica (M54.50) Active confirmed Vital Signs Blood pressure diastolic 80 mm Hg 10/07/2024 Height 66 in 10/07/2024 Blood pressure systolic 122 mm Hg 10/07/2024 Weight 159 lbs 10/07/2024 BMI 25.66 kg/m2 10/07/2024 Procedures Procedure Date Ordered Date Performed Result Body Sit e EAR IRRIGATION - performed 10/07/2024 10/07/2024 N/A Encounters Encounter Location Date Provider Diagnosis [facility] [address] [place] [address] 10/11/2024 Tristian Hoy Cerumen impaction H61.20 [facility] [address] [place] [address] 12/18/2024 Tristian Hoy [facility] [address] [place] [address] 10/07/2024 Tristian Hoy Cerumen impaction H61.20 and Bilateral impacted cerumen H61.23 Assessments Encounter Date Diagnosis (ICD Code) Assessment Notes Treatment Notes Treatment Clinical Notes Section Notes 10/07/2024 Cerumen impaction (ICD-10 - H61.20) ear war R 10/07/2024 Bilateral impacted cerumen (ICD-10 - H61.23) 10/11/2024 Cerumen impaction (ICD-10 - H61.20) Plan Of Treatment Pending Test Test Name Order Date EAR IRRIGATION - performed 10/07/2024 Insurance Providers Payer Name Payer Address Payer Phone Subscriber Number Group Number Insured Name Patient Relationship to Insured Coverage Start Date Coverage End Date [employer] [address] [address] [place] [address] [id number] Esme Olivo Self - patient is the insured Medications Administered Medication Instructions Date of Administration Dosage Notes DEPO-Medrol 03/27/2023 80 mg 80 Ketorolac Tromethamine 01/01/2023 60 mg 60 mg Ketorolac Tromethamine 01/02/2023 60 mg Orphenadrine Citrate 01/01/2023 60 mg 60 m g Orphenadrine Citrate 01/02/2023 60 mg Medical (General) History Medical History History ICD Code Depression F32.9 Over weight E66.3 Acute recurrent frontal sinusitis J01.11 Cerumen impaction H61.20 Chronic midline low back pain without sc iatica M54.50 Irritable bowel syndrome K58.9 Neck pain M54.2 Arthralgia M25.50 Knee pain M25.569 Well adult Z00.00 Elbow pain M25.529 Allergic rhinitis, seasonal J30.2 Cold sore B00.1 Eczema L30.9 Migraine headache G43.909 Insomnia G47.00 Cholelithiasis K80.20 Surgical History Surgery Date(Month/Year) Cholecystectomy 2011 Tonsillectomy 1988
--- OUTSIDE RECORDS SUMMARY | 2025-03-02 05:47 | XMS_ITS | Clinical Summary ---
Author Organization [facility] Healthcare Address [address] [place] [address] Care Team Providers Care Woven Wood Shade Assembler Name Role Phone Jayden Rothman MD Primary Care Provider [phone] Allergies No known active allergies Medications rizatriptan (Maxalt) 10 MG tablet Take 10 mg by mouth in the morning. 03/19/2023 Active topiramate (Topamax) 100 MG tablet Take 100 mg by mouth in the morning. 03/25/2023 Active tiZANidine (Zanaflex) 4 MG tablet Take 8 mg by mouth at bedtime. 02/16/2023 Active medroxyPROGESTE Pablo (Depo-Provera) 150 MG/ML suspension prefilled syringe injection syringeIndicati ons:Encounter for management and injection of depo-Provera Inject 1 mL (150 mg) into the shoulder, thigh, or buttocks every 3 (three) months 1 mL 3 12/08/2024 12/09/19 26 Active Hospital, Clinic, or Other Facility Administered Medication Ordered Dose Route Frequency Start Date End Date Status medroxyPROGESTERone (Depo-Provera) injection 150 mgIndications:Encounter for management and injection of depo-Provera 150 mg IM Once 09/18/2023 Active medroxyPROGESTERone (Depo-Provera) injection 150 mgIndications:Encounter for surveillance of injectable contraceptive 150 mg IM Once 12/08/2024 Active medroxyPROGESTERone (Depo-Provera) injection 150 mgIndications:Encounter for surveillance of injectable contraceptive 150 mg IM Once 11/18/2024 02/10/2025 Ended medroxyPROGESTERone (Depo-Provera) injection 150 mgIndications:Encounter for management and injection of depo-Provera 150 mg IM Once 02/10/2025 02/10/2025 Ended Encounters Date Type Department Care Team Description 02/10/2025 11:10 AM EDT Clinical Support [facility] [address] [place] [address] Encounter for management and injection of depo-Provera 02/07/2025 Travel 12/16/2024 Clinisync Result Encounter [facility] External Department Unsolicited Marija Vasquez PA 12/08/2024 2:00 PM EDT Office Visit [facility] [address] [place] [phone] Marija Vasquez PA Well woman exam with routine gynecological exam; Breast cancer screening by mammogram; Encounter for management and injection of depo-Provera; Encounter for surveillance of injectable contraceptive 12/08/2024 Clinisync Result Encounter [facility] External Department Unsolicited Marija Vasquez PA 12/08/2024 Bamboo flowsheet [facility] [address] [place] [phone] Marija Vasquez PA 12/05/2024 Travel from Last 3 Months Social History Tobacco Use Types Packs/Day Years Used Date Smoking Tobacco: Never Tobacco Cessation:Counseling Given: Not Answered Alcohol Use Standard Drinks/Week Comments Never 0 (1 standard drink = 0.6 oz pur e alcohol) Comments Unknown Sex and Gender Information Value Date Recorded Sex Assigned at Female 03/20/2023 9:56 AM EDT Legal Sex Female 11:47 PM EDT Gender Identity Female 03/20/2023 9:56 AM EDT Sexual Orientation Straight 03/20/2023 9: 56 AM EDT Last Filed Vital Signs Vital Sign Reading Time Taken Comments Blood Pressure 120/74 02/10/2025 11:09 AM EDT Pulse - - Temperature - - Respiratory Rate - - Oxygen Saturation - - Inhaled Oxygen Concentration - - Weight 70.9 kg (156 lb 6.4 oz) 02/10/2025 11:09 AM EDT Height 167.6 cm (5' 6 ) 12/03/2023 2:01 PM EDT Body Mass Index 25.24 12/03/2023 2:01 PM EDT Plan of Treatment Upcoming Encounters Date Type Department Care Team (Late st Contact Info) Description 04/28/2025 11:00 AM EDT Clinical Support [facility] [address] [place] [phone] 12/14/2025 2:00 PM EDT Office Visit [facility] [address] [place] [address] Marija Vasquez PA [address] [place], [place] [id number] Health Maintenance Due Date Last Done Comments HPV/Cotest 2011 Influenza Vaccine (Season Ended) 2025 Mammogram 12/16/2025 12/16/2024 Cervical Cancer Screening 12/02/2026 Pap Smear 12/02/2026 12/03/2023, 11/06/2022 Procedures Procedure Name Priority Date/Time Associated Diagnosis Comments POCT , URINE Routine 02/10/2025 11:15 AM EDT Encounter for management and injection of depo-Provera MM TOMOSYNTHESIS SCREENING BI 12/16/2024 3:20 PM EDT IGP,APTIMA HPV,AGE GDLN Routine 12/08/2024 2:04 PM EDT PAP SMEAR Routine 12/03/2023 12:00 AM EDT from Last 3 Months or Most Recently Relevant to Health Maintenance Results * POCT , urine manually resulted (02/10/2025 11:15 AM EDT) Preg Test, Ur Negative Negative Urine 02/10/2025 11:1 5 AM EDT Fabian Ba DO POINT OF CARE TEST ENTER/EDIT OR DERABLES Final Result * MM TOMOSYNTHESIS SCREENING BI (12/16/2024 3:20 PM EDT) Anatomical Region Laterality Modality Other 12/16/2024 3:20 PM EDT Narrative 12/16/2024 3:21 PM EDT The [address] [address] Mammography Report Signed Patient: ESME OLIVO MR#: [id number] : 1980 Acct:[id number] Age/Sex: 44 / F ADM Date: 12/16/24 Loc: MAMMO Attending Dr: Marija Vasquez Ordering Physician: Marija Vasquez Results: Date of Service: 12/16/24 Follow Up: Procedure(s): MM tomosynthesis screening BI Accession Number(s): [id number] cc: Marija Vasquez; Jayden Rothman M.D. Patient Name: ESME OLIVO MR#: [id number] : 1980 Exam Date: 12/16/2024 Ordering Doctor: SHARMAINE VASQUEZ . RADIOLOGY REPORT PROCEDURE: MM TOMOSYNTHESIS SCREENING BI COMPARISON: MG MAMM SCREEN 3D MAYURI CAD, 10/24/2022. INDICATIONS: Screening mammogram Calculator Name NCI Breast Cancer Risk Assessment Tool 5 Year Breast Cancer Risk 0.80% Lifetime Breast Cancer Risk 10.80% Personal Breast Cancer No Personal Ovarian Cancer No Treatments None Family Cancers None LOCATION: [facility] BREAST COMPOSITION: The breasts are heterogeneously dense,which [...] Signed By: 12/16/24 1521 DD/ 1520 TD/TT: Pinsetter Mechanic Helper: Procedure Note Radiology, Radiologist, - 12/16/[address] [address] Mammography Report Signed Patient: ESME OLIVO SMR#: [id number] : 1980Acct:[id number] Age/Sex: 44 / FADM Date: 12/16/24 Loc: MAMMO Attending Dr: Marija Vasquez Ordering Physician: Marija Campoults: Date of Service: 12/16/24Follow Up: Procedure(s): MM tomosynthesis screening BI Accession Number(s): [id number] cc: Marija Vasquez; Jayden Rothman M.D. Patient Name: ESME OLIVO MR#: [id number] : 1980 Exam Date: 12/16/2024 Ordering Doctor: SHARMAINE VASQUEZ . RADIOLOGY REPORT PROCEDURE: MM TOMOSYNTHESIS SCREENING BI COMPARISON: MG MAMM SCREEN 3D MAYURI CAD, 10/24/2022. INDICATIONS: Screening mammogram Calculator Name NCI Breast Cancer Risk Assessment Tool 5 Year Breast Cancer Risk 0.80% Lifetime Breast Cancer Risk 10.80% Personal Breast Cancer No Personal Ovarian Cancer No Treatments None Family Cancers None LOCATION: [facility] BREAST COMPOSITION: The breasts are heterogeneously dense,which may obscure small masses. FINDINGS: DIAGNOSTIC CATEGORY 1--NEGATIVE. RIGHT BREAST: No significant suspicious finding. LEFT BREAST: No significant suspicious finding. RECOMMENDATIONS: ROUTINE MAMMOGRAM AND CLINICAL EVALUATION IN 12 MONTHS. PLEASE NOTE: A NORMAL MAMMOGRAM DOES NOT EXCLUDE THE POSSIBILITY OFBREAST CANCER. A CLINICALLY SUSPICIOUS PALPABLE LUMP SHOULD BE BIOPSIED. Dictated by: Sandoval Curtis DO on 12/16/2024 at 15:18 Approved by: Sandoval Curtis DO on 12/16/2024 at 15:20 Dictated By: Sandoval Curtis M.D. Signed By:12/16/24 1521 DD/ 1520 TD/TT: Pinsetter Mechanic Helper: us Marija SCHMID [facility] Final Result * IGP,APTIMA HPV,AGE GDLN (12/08/2024 2:04 PM EDT) AGE GDLN ACOG TESTING Note . TB Comment: TESTS RESULT FLAG UNITS REF RANGE LAB Clinician Provided Cytology Information Source.............Cervix;Endocervix No. of containers..01 ThinPrep Vial Age Thiago SHEN Eloisa... 31 FLAG LEGEND: L-Low Normal,H-High Normal,LL-Alert Low,HH-Alert High <-Panic Low,>-Panic High,A-Abnormal,AA-Critical Abnormal Performed at: 01 [facility] [address] [place] [address] Evita Roach MD, IGP, APTIMA HPV, RFX 16/18,45 Note . [facility] Comment: TESTS RESULT FLAG UNITS REF RANGE LAB DIAGNOSIS: 02 NEGATIVE FOR INTRAEPITHELIAL LESION OR MALIGNANCY. CELLULAR CHANGES ASSOCIATED WITH INFLAMMATION ARE PRESENT. Specimen adequacy: 02 Satisfactory for evaluation. Endocervical and/or squamous metaplastic cells (endocervical component) are present. Performed by: Jakub Pham Box Sorter (ASCP) . 02 Note: Note 02 The [...] <-Panic Low,>-Panic High,A-Abnormal,AA-Critical Abnormal Performed at: [address] [address] Evita Roach MD, HPV APTIMA Negative Negative [facility] Comment: This nucleic acid amplification test detects fourteen high- risk HPV types (16,18,31,33,35,39,45,51,52,56,58,59,66,68) without differentiation. Performed at: =[address] [id number] [place] Supervisor: Evita Roach MD, Phone: [phone] Performed at: [address] [id number] [place] Supervisor: Evita Roach MD, Phone: [phone] 12/08/2024 2:04 PM EDT 12/08/2024 8:13 PM EDT Narrative [facility] - 12/13/2024 11:08 AM EDT BRUSH-SPATULA CERVIX ENDOCERVIX us Marija SCHMID LAB BLOOD ORDERABLES Final Resul t [facility] * Pap Smear (12/03/2023 12:00 AM EDT) Swab Cervical swab / Unknown us [facility] Nurse LAB CYTOLOGY ORDERABLES Final Result EXTERNAL LAB from Last 3 Months or Most Recently Relevant to Health Maintenance Insurance [employer] Care Teams Woven Wood Shade Assembler Relationship Specialty Start Date End Date Jayden Rothman MD [address] [place] [phone] PCP - General Family Medicine 03/27/23
--- NOTE | 2025-03-02 06:00 | ED_ITS ---
HPI HPI - Back Pain/Injury General Chief Complaint: Back Pain/Injury Stated Complaint: BACK SPASMS Time Seen by Provider: 03/02/25 05:57 Source: patient Mode of arrival: ambulance History of Present Illness HPI Narrative: past history of back spasm. States she bent over last PM and developed acute lower back spasm pain. No radicular symptoms. States similar pain in the past that improves after muscle relaxant and anti inflammatory. No nausea Related Data Home Medications ?Medication ?Instructions ?Recorded ?Confirmed diclofenac sodium 75 mg mg PO 03/02/25 tablet,delayed release medroxyprogesterone 150 mg/mL mg IM 03/02/25 intramuscular syringe rizatriptan 10 mg tablet mg 03/02/25 topiramate 100 mg tablet mg 03/02/25 Allergies Allergy/AdvReac Type Severity Reaction Status Date / Time No Known Drug Allergies Allergy Verified 03/02/25 05:48 Opioid HPI Opioid Management Most Recent Opioid Data: 2 Last Pain Scale 8 Today, 06:12 Last MAR Pain Assessment Today, 06:12 Review of Systems 2 ROS0 Status of ROS 10 or more systems reviewed and unremark able except as noted in history and below PFSH PFSH Social History Little interest or pleasure in doing things: not at all Feeling down, depressed, or hopeless: not at all Exam Constitutional Vital Signs, click to edit/add: Last Vital Signs Temp 97.9 F 03/02/25 05:43 Pulse 99 H 03/02/25 05:43 Resp 16 03/02/25 05:43 BP 130/101 H 03/02/25 05:43 Pulse Ox 100 03/02/25 05:43 O2 Del Method Room Air 03/02/25 05:43 Common normals: no apparent distress, average body habitus, oriented x3, no limitations, healthy appearing, alert and well nourished [facility] Common normals: normocephalic and head/scalp atraumatic Respiratory Common normals: normal respiratory effort, no retractions, no use of accessory muscles and clear to auscultation bilaterally Cardio Common normals: regular rate, regular rhythm, S1 normal heart sound and S2 normal heart sound GI Common normals: Normal to inspection, nondistended, normoactive bowel sounds present Inspection: normal to inspection Back & Pelvis Back image (female): 2 1. tenderness L>R Extremity Common normals: normal to inspection and full ROM Neuro Common normals: oriented x3, CN's II-XII intact bilaterally, moves all extremities and no focal motor deficits Psych Appearance: grossly normal Course Vital Signs Vital signs: Vital Signs Temperature 97.9 F 03/02/25 05:43 Pulse Rate 99 H 03/02/25 05:43 Respiratory Rate 16 03/02/25 05:43 Blood Pressure 130/101 H 03/02/25 05:43 Pulse Oximetry 100 03/02/25 05:43 Oxygen Delivery Method Room Air 03/02/25 05:43 Temperature 97.9 F 03/02/25 05:43 Pulse Rate 99 H 03/02/25 05:43 Respiratory Rate 16 03/02/25 05:43 Blood Pressure 130/101 H 03/02/25 05:43 Pulse Oximetry 100 03/02/25 05:43 Oxygen Delivery Method Room Air 03/02/25 05:43 MDM - Back Pain/Injury MDM Narrative Medical decision making narrative: patient presents with lower back muscular spasm. Similar episodes in the past. Usually able to go to her PCP for injection of muscle relaxant and anti inflammatory. Tried oral muscle relaxant last PM after she bent down and the spasm returned. No radicualar symptoms. Treated in the department with IV toradol and valium. Rechecked and she is improving. States feels less tight. Will continue to monitor for now care transferred to oncoming physician Discharge Plan Discharge Chief Complaint: Back Pain/Injury Clinical Impression: Lumbar paraspinal muscle spasm Patient Disposition: Home, Self-Care Prescriptions / Home Meds: No Action topiramate 100 mg tablet medroxyprogesterone 150 mg/mL syringe IM rizatriptan 10 mg tablet diclofenac sodium 75 mg tablet,delayed release (DR/EC) PO Print Language: Djiboutian Instructions: Back Pain (ED) Additional Instructions: follow up with your doctor early next week for recheck Referrals: Jayden Rothman MD [Primary Care Provider, Family Practice] - 1 week
[2025-03-02] MEDS: KETOROLAC TROMETHAMINE 30 MG/ML VIAL IVP (06:12)
[2025-03-02] MEDS: DIAZEPAM 10 MG/2 ML SYRINGE 5 MG IV (06:13)
--- NOTE | 2025-03-02 06:48 | PC.NURSE ---
Pt states that she i9s fine without pain while lying still If she moves, pain is a 5 or a 6. MD wants to observe her a bit longer.
[2025-03-02 07:16] VITALS: BP 130/97; PULSE 83; O2SAT 100
--- NOTE | 2025-03-02 07:39 | PC.NURSE ---
pt called out and states she does not feel any better -- would like someone to get her some more medication
[2025-03-02] MEDS: METHYLPREDNISOLONE SOD SUCC PF 40 MG/ML VIAL IVP (08:10)
[2025-03-02] MEDS: ORPHENADRINE 60 MG/2 ML VIAL IV (08:12)
[2025-03-02 09:11] VITALS: BP 148/88
== END 2025-03-02 09:13 | disposition home or self-care (01) ==
PROVIDERS: Emergency Provider Internal Medicine; PCP Family Medicine
DX: M62.838 Other muscle spasm (principal)
CPT/HCPCS: 96374; 96375; 99284; J1885; J2360; J2919; J3360